=== PATIENT | male | born 1950 | race Caucasian/White ===

== ENCOUNTER 2018-08-13 09:20 | Day surgery (SDC) | payer OTHER ==
[2018-08-13] MEDS: CEFAZOLIN 2 GM/50 ML (PMX) 50 ML IVPB (10:00)
[2018-08-13] MEDS ORDERED: ROCURONIUM 50 MG INJ (10:55)
[2018-08-13] MEDS ORDERED: PROPOFOL 20 ML (10:55)
[2018-08-13] MEDS ORDERED: FENTAnyl 50 MCG/ML VIAL (10:56)
[2018-08-13] MEDS: BUPIVACAINE 0.5% (SDV) 30 ML INJ (11:16)
[2018-08-13] MEDS ORDERED: GLYCOPYRROLATE 0.4 MG INJ (12:01)
[2018-08-13] MEDS ORDERED: NEOSTIGMINE 3 MG/3 ML SYRINGE (12:01)
[2018-08-13] MEDS ORDERED: CEFAZOLIN 1 GM INJ (12:01)
[2018-08-13] MEDS ORDERED: ALBUTEROL 0.083% (NEB) 2.5 MG/3 ML AMP HHN (12:30)
[2018-08-13] MEDS ORDERED: OXYCODONE/ACETAMINOPHEN (5/325) TAB PO (12:30)
[2018-08-13] MEDS ORDERED: ONDANSETRON 4 MG INJ IV (12:30)
[2018-08-13] MEDS ORDERED: hydrALAzine 20 MG INJ IV (12:30)
[2018-08-13] MEDS ORDERED: MEPERIDINE 25 MG INJ IV (12:30)
[2018-08-13] MEDS ORDERED: FENTAnyl 50 MCG/ML VIAL IV ×2 (12:30)
[2018-08-13] MEDS ORDERED: MIDAZOLAM 1 MG/ML 2 ML INJ IV (12:30)
[2018-08-13] MEDS ORDERED: METOCLOPRAMIDE 10 MG INJ IV (12:30)
[2018-08-13] MEDS ORDERED: LABETALOL HCL 20MG INJ IV (12:30)
[2018-08-13] MEDS ORDERED: HYDROmorphONE 1 MG/5 ML IV SYRINGE IV ×3 (12:30)
[2018-08-13] MEDS ORDERED: DIPHENHYDRAMINE 50 MG INJ IV (12:30)
[2018-08-13] MEDS ORDERED: KETOROLAC 30 MG INJ IV (12:30)
[2018-08-13] MEDS: FENTAnyl 50 MCG/ML VIAL IV (12:47)
[2018-08-13] MEDS: OXYCODONE/ACETAMINOPHEN (5/325) TAB PO (14:06)
[2018-08-13] MEDS ORDERED: ROPIVACAINE 0.5 % 30 ML VIAL (15:54)
[2018-08-13] MEDS ORDERED: SUGAMMADEX SODIUM 200 MG/2 ML VIAL IV (15:57)
== END 2018-08-13 14:34 | disposition home or self-care (01) ==
LOC: SDS 09:20
DX: N50.1 Vascular disorders of male genital organs (principal)
CPT/HCPCS: 54530; 88309